=== PATIENT | female | born 1970 | race Two or more races ===

== ENCOUNTER 2021-07-13 17:05 | Emergency (ER) | payer MEDICAID ==
--- NOTE | 2021-07-13 17:13 | NUR ---
called to triage,no answer
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
--- NOTE | 2021-07-13 21:00 | NUR ---
[employer] AT BED SIDE
--- NOTE | 2021-07-13 21:35 | NUR ---
PT IS MEDICALLY STABLE FOR D/C PER MD. Patient discharged to home in stable condition. Written and verbal after care instructions given. Patient verbalizes understanding of instruction.
[2021-07-13] MEDS ORDERED: CEFTRIAXONE 500 MG VIAL ONE (21:45)
[2021-07-13] MEDS ORDERED: AZITHROMYCIN 250 MG TABLET ONE (21:46)
[2021-07-13] MEDS: CEFTRIAXONE 500 MG VIAL IM ONE (21:56)
[2021-07-13] MEDS: AZITHROMYCIN 250 MG TABLET PO ONE (21:56)
--- NOTE | 2021-07-13 21:56 | NUR ---
Patient discharged to home in stable condition. Written and verbal after care instructions given. Patient verbalizes understanding of instruction.
[2021-07-13] MEDS ORDERED: BENZOIN COMPOUND TINCT 60 ML BOTTLE ONE (23:45)
[2021-07-14 02:55] VITALS: BP 134/85
[2021-07-14] MEDS ORDERED: DICL1KIT14 TP (22:39)
[2021-07-14] MEDS ORDERED: IBUP100O PO (23:11)
== END 2021-07-13 22:00 | disposition home or self-care (01) ==
LOC: ER 17:11
DX: T76.21XA Adult sexual abuse, suspected, initial encounter (principal)
CPT/HCPCS: J0696

== ENCOUNTER 2021-07-14 16:59 | Emergency (ER) | payer MEDICAID ==
[~2021-07-14] VITALS: Ht 160 cm; Wt 77.1 kg
[2021-07-14 18:42] VITALS: BP 111/86
--- NOTE | 2021-07-14 20:02 | NUR ---
GOING TO XRAY
[2021-07-14] MEDS ORDERED: DICL1KIT14 TP (22:39)
--- NOTE | 2021-07-14 22:56 | NUR ---
Patient discharged to home in stable condition. Written and verbal after care instructions given. Patient verbalizes understanding of instruction. Pt ambulatory with a steady gait
[2021-07-14] MEDS ORDERED: IBUP100O PO (23:11)
== END 2021-07-14 23:21 | disposition home or self-care (01) ==
LOC: ER 18:27
DX: M54.50 Low back pain, unspecified (principal)
CPT/HCPCS: 72110-TC

== ENCOUNTER 2021-07-18 21:24 | Emergency (ER) | payer MEDICAID ==
[~2021-07-18] VITALS: Ht 160 cm; Wt 78.5 kg
[~2021-07-18 21:24] MED LIST: DICL1KIT14 TP; IBUP100O PO
[2021-07-18 21:31] VITALS: BP 106/54
--- NOTE | 2021-07-18 22:31 | NUR ---
Patient discharged to home in stable condition. Written and verbal after care instructions given. Patient verbalizes understanding of instruction. Pt ambulated out of ER with steady gait.
== END 2021-07-18 22:31 | disposition home or self-care (01) ==
LOC: ER 21:27
DX: Z00.8 Encounter for other general examination (principal); M25.562 Pain in left knee; R10.9 Unspecified abdominal pain; M54.50 Low back pain, unspecified; Z59.00 Homelessness unspecified

== ENCOUNTER 2021-07-21 15:51 | Emergency (ER) | payer MEDICAID ==
[~2021-07-21] VITALS: Ht 162.6 cm; Wt 78.5 kg
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
--- NOTE | 2021-07-21 16:59 | NUR ---
COVID SWAB COLLECTED AND SENT TO LAB [facility] AT PT'S BEDSIDE
[2021-07-21 17:10] LABS: BASOPHILS % (AUTO) 0.4 % (0.0-2.0); EOSINOPHILS % (AUTO) 1.8 % (0.0-6.0); HEMATOCRIT 36 % (33-45); HEMOGLOBIN 12.7 g/dL (11.5-14.8); LYMPHOCYTES # (AUTO) 3.2 K/uL (0.8-4.8); MEAN CORPUSCULAR HGB CONC 35 g/dl (31.0-36.0); MEAN CORPUSCULAR VOLUME 92 fL (82-100); MONOCYTES # (AUTO) 0.5 K/uL (0.1-1.30); MONOCYTES % (AUTO) 7.5 % (2.0-12.0); NEUTROPHILS # (AUTO) 2.7 K/uL (1.8-8.9); NEUTROPHILS % (AUTO) 41.3 % (43.0-81.0); PLATELET COUNT (AUTO) 196 K/uL (150-450); RED BLOOD CELL COUNT(AUTO) 3.95 MIL/uL (4.0-5.2); WHITE BLOOD COUNT (AUTO) 6.6 K/uL (4.3-11.0)
[2021-07-21 17:15] LABS: CALCIUM, SERUM 8.2 mg/dL (8.5-10.1); CARBON DIOXIDE 28 mmol/L (21-32); CHLORIDE 106 mmol/L (98-107); CREATININE 0.6 mg/dL (0.6-1.3); GLUCOSE 89 mg/dL (74-106); POTASSIUM 3.1 mmol/L (3.5-5.1); SODIUM SERUM 143 mmol/L (136-145); UREA NITROGEN, BLOOD 13 mg/dL (7-18)
[2021-07-21 17:20] LABS: ALANINE AMINOTRANSFERASE 23 U/L (12-78); ALBUMIN 3.4 g/dL (3.4-5.0); ALKALINE PHOSPHATASE 95 U/L (46-116); ASPARTATE AMINOTRANSFERASE 17 U/L (15-37); BILIRUBIN,DIRECT 0.1 mg/dL (0.0-0.2); BILIRUBIN,TOTAL 0.6 mg/dL (0.2-1.0); TOTAL PROTEIN, SERUM 6.9 g/dL (6.4-8.2)
[2021-07-21 17:21] LABS: ACETAMINOPHEN < 0 ug/ml (10-30); ALCOHOL, BLOOD < 3 mg/dL (0-0)
[2021-07-21] MEDS ORDERED: POTASSIUM CHLORIDE 20 MEQ TAB.PRT.SR PO ONE ×2 (18:00→18:34)
[2021-07-21] MEDS ORDERED: MAGNESIUM OXIDE 400 MG TABLET PO ONE (18:30)
--- NOTE | 2021-07-21 18:34 | NUR ---
THE PATIENT IS ALERT AND ORIENTED X2. AHAS STABLE GAIT. DENIES SI/HI.WILL CONTINUE TO MONITOR THE PATIENT.
--- NOTE | 2021-07-21 18:38 | NUR ---
URINE COLLECTED AND SENT TO THE LAB
[2021-07-21 18:45] LABS: BILIRUBIN,URINE Negative (NEGATIVE); COLOR,URINE YELLOW (YELLOW); LEUKOCYTE ESTERASE ,URINE Negative (NEGATIVE); NITRITE, URINE Negative (NEGATIVE); PROTEIN,URINE Negative (NEGATIVE); UGLUCOSE Negative (NEGATIVE); UROBILINOGEN,URINE 0.2 EU/dL (0.2)
[2021-07-21 18:48] LABS: BACTERIA,URINE Few /HPF (None Seen); SQUAMOUS EPITHELIAL CELL,UR Few /HPF (None Seen); WBC,URINE 0-2 /HPF (0-3)
--- NOTE | 2021-07-21 19:11 | NUR ---
FAXED CLINICALS TO [facility].
--- NOTE | 2021-07-21 19:20 | NUR ---
REPORT GIVEN TO NURSE MENSAH
--- NOTE | 2021-07-22 04:00 | NUR ---
PATIENT RESTING IN BED, VSS. PATIENT PROVIDED PO FLUIDS TOLERATING WELL. PATIENT AMBULATED TO RESTROOM AND RETURNED TO BED. GAIT IS STEADY. WILL CONTINUE TO MONITOR.
--- NOTE | 2021-07-22 07:45 | NUR ---
THE PATIENT IS RECEIVED IN ER BED #15. SLEEPING. EASILY RESPONSIVE TO VERBAL STIMULI. RESPIRATION REGULAR AND UNLABORED. WILL CONTINUE TO MONITOR THE PATIENT.
--- NOTE | 2021-07-22 08:34 | NUR ---
FOOD TRAY PROVIDED
--- NOTE | 2021-07-22 09:01 | NUR ---
Patient Tranfers to outside Facility Physician:Dr. Washington Location:[facility] number for report [phone] ext [phone]
--- NOTE | 2021-07-22 09:15 | NUR ---
S TRANSPORT WITH [facility] ETA 1230 TO [facility].
[2021-07-22 09:16] VITALS: BP 135/81
--- NOTE | 2021-07-22 09:19 | NUR ---
Called [facility] and spoke to Nazanin PACK and report given.
--- NOTE | 2021-07-22 12:04 | NUR ---
REPORT GIVEN TO ALBULANCE STAFF
--- NOTE | 2021-07-22 12:15 | NUR ---
patient picked up by private ambulance going to [facility] in no distress.
== END 2021-07-22 12:15 ==
LOC: ER 17:17
DX: F29 Unspecified psychosis not due to a substance or known physiological condition (principal); E87.6 Hypokalemia; Z91.19 Patient's noncompliance with other medical treatment and regimen; E83.42 Hypomagnesemia; Z20.822 Contact with and (suspected) exposure to COVID-19; Z59.01 Sheltered homelessness
CPT/HCPCS: 36415; 80048; 80076; 80143; 80307; 80320; 81001; 83735; 85025; 87426; 99285; C9803; G0480